=== PATIENT | female | born 1960 | race Caucasian/White ===

== ENCOUNTER 2018-06-21 22:25 | Emergency (ER) | payer OTHER, MEDICAID, SELFPAY ==
[2018-06-21 22:29] VITALS: BP 113/76; PULSE 81; RESP 16; TEMP 36.6; O2SAT 99
--- NOTE | 2018-06-21 23:46 | ED_ITS ---
HPI - Abdominal Pain General Chief Complaint: Abdominal Pain Stated Complaint: ABDOMINAL SWELLING S/P FALL Time Seen by Provider: 06/21/18 23:18 Source: patient Mode of arrival: ambulatory Limitations: no limitations History of Present Illness HPI narrative: 57-year-old female here for evaluation of a bruise on her right abdomen. She states that this morning she was climbing some stairs where she tripped over her shoe lace hitting the right side of her abdomen on a stair step. No other injuries were reported from the event. She states that since then she has had a bruise that has developed in her right lower abdomen. She denies any abdominal pain other than pain when you touch this area. She is on aspirin but no other anticoagulation. She did call her primary care doctor's office and spoke to the nurse there who told her that as long as she was not vomiting she did not need to come to the emergency department. She stated that she did come because her children thought that she needed to be evaluated because of the size of the bruise. Related Data Home Medications Medication Instructions Recorded Confirmed ASPIRIN (Aspirin Low Dose) 81 mg PO #0 10/29/07 Citalopram Hydrobromide 0 PO * UK DOSE/FREQUENCY #0 10/29/07 (Citalopram HBr) Nortriptyline Hydrochloride 0 PO * UK DOSE/FREQUENCY #0 10/29/07 (Pamelor) Simvastatin (Zocor) 0 PO * UK DOSE/FREQUENCY #0 10/29/07 Sumatriptan Succinate (Imitrex) 0 PO * UK DOSE/FREQUENCY #0 10/29/07 [NATATOL] #0 10/29/07 Previous Rx's Medication Instructions Recorded oseltamivir 75 mg PO QDAY #7 cap 12/24/17 Allergies Allergy/AdvReac Type Severity Reaction Status Date / Time Opioids - Morphine Analogues Allergy Verified 06/21/18 22:32 Review of Systems ENT Ears, Nose, Mouth, and Throat: Denies vertigo and Denies dizziness Cardiovascular Denies chest pain, Denies syncope and Denies dyspnea Respiratory Denies dyspnea Gastrointestinal Gastrointestinal: Reports abdominal pain ( Over the bruise in her abdomen) Genitourinary Denies dysuria Musculoskeletal Denies abnormal gait, Denies myalgias and Denies arthralgias Integumentary/Breasts Denies skin ulcer, Denies sores and Reports unusual bruising ( right lower abdomen) Neurologic Denies abnormal gait, Denies confusion, Denies vertigo, Denies dizziness and Denies syncope Psychiatric Denies confusion Hematologic/Lymphatic Denies easy bleeding and Denies easy bruising Allergic/Immunologic Denies urticaria Exam Initial Vital Signs Initial Vital Signs: Vital Signs Temperature 97.9 F 06/21/18 22:29 Pulse Rate 81 06/21/18 22:29 Respiratory Rate 16 06/21/18 22:29 Blood Pressure 113/76 06/21/18 22:29 Pulse Oximetry 99 06/21/18 22:29 Const General: cooperative, healthy appearing, comfortable and well developed Orientation: alert, awake and oriented x3 HENMT Head: normal to inspection and normocephalic Resp Effort & Inspection: normal respiratory effort GI Inspection: abdominal wall ecchymosis ( a 15 cm round area right lower quadrant) , no edema and non-distended Palpation: soft, No guarding and tender ( superficial over area of the ecchymosis) Back/Spine/Pelvis Back: No CVA tenderness Skin Other: 15 cm round area of ecchymosis over the right lower abdomen well demarcated. No breaks in the skin. No bleeding. Neuro General: alert, awake and oriented x3 Cognition: normal cognition Speech: speech normal Gait: normal gait Motor: muscle tone normal throughout Sensory Exam: no sensory deficits noted Extrem General: normal to inspection and capillary refill normal Psych Appearance: grossly normal and well kempt Procedures FAST Exam FAST Exam 1: Fluid in Morison's pouch: No Fluid in Splenorenal Junction: No Fluid around bladder, Transverse view: No Fluid around bladder, Sagittal view: No Fluid in Pericardial Sac: No Gross Wall Motion Abnormality: No Study normal for this patient: Yes Images saved for further review: No Course Vital Signs - 8 hr 06/21/18 22:29 06/21/18 23:55 Temperature 97.9 F Pulse Rate 81 69 Respiratory Rate 16 14 Blood Pressure 113/76 136/72 H Pulse Oximetry 99 99 MDM - Abdominal Pain MDM Narrative Medical decision making narrative: Patient with a right lower quadrant abdominal wall ecchymosis. Fast exam was negative. She had a benign abdominal exam. Will hold on any CT scan for now. No breaks in the skin. No indication for antibiotics. patient was given return precautions. She expressed understanding and agreement with plan Discharge Plan Departure Patient Disposition: Home, Self-Care Clinical Impression: Abdominal wall hematoma Discharge Date/Time: 06/21/18 23:55 Interventions: ED Discharge Assessment Last Done: 06/21/18 23:55 Instructions: DI for Hematoma (Bruise) Activity Restrictions/Additional Instructions: call your primary care doctor for a follow-up. Your only restricted in any activity by discomfort you may have. Return to the emergency department for any new or worsening symptoms Prescriptions: No Action ASPIRIN (Aspirin Low Dose) 81 mg PO Qty: 0 RF: 0 Citalopram Hydrobromide (Citalopram HBr) PO * UK DOSE/FREQUENCY Qty: 0 RF: 0 Simvastatin (Zocor) PO * UK DOSE/FREQUENCY Qty: 0 RF: 0 Sumatriptan Succinate (Imitrex) PO * UK DOSE/FREQUENCY Qty: 0 RF: 0 Nortriptyline Hydrochloride (Pamelor) PO * UK DOSE/FREQUENCY Qty: 0 RF: 0 [NATATOL] Qty: 0 RF: 0 oseltamivir 75 MG capsule 75 mg PO QDAY Qty: 7 RF: 0
[2018-06-21 23:55] VITALS: BP 136/72; PULSE 69; RESP 14; O2SAT 99
== END 2018-06-21 23:55 | disposition home or self-care (01) ==
PROVIDERS: Emergency Provider Emergency Medicine
DX: S30.1XXA Contusion of abdominal wall, initial encounter (principal); W10.8XXA Fall (on) (from) other stairs and steps, initial encounter; Y99.0 Civilian activity done for income or pay
CPT/HCPCS: 99282

== ENCOUNTER 2018-06-30 18:39 | Emergency (ER) | payer OTHER, MEDICAID, SELFPAY ==
[2018-06-30 18:44] VITALS: BP 110/70; PULSE 89; RESP 20; TEMP 36.8; O2SAT 97
--- NOTE | 2018-06-30 20:11 | DI.RAD.S_ITS ---
PROCEDURE: XR LUMBAR SPINE 2-3V INDICATIONS: pain midline hx surgery TECHNIQUE: 3 views of the lumbar spine were acquired. COMPARISON: None. FINDINGS: Bones: 5 [id number] vertebrae are present, assuming the vertebra with rudimentary ribs is the L1 and sacralization of L5. There is grade 3 anterolisthesis of L5 on S1. There is a surgical screw traversing L5-S1. No vertebral body compression fractures. No suspicious bony lesions. Soft tissues: Overlying bowel gas pattern is normal. No suspicious soft tissue calcifications. IMPRESSION: 1. No fractures. 2. Transitional anatomy as described. 3. Grade 3 anterolisthesis of L5 on S1. Dictated by: Francoise Rodas M.D. on 06/30/2018 at 20:57 Approved by: Francoise Rodas M.D. on 06/30/2018 at 21:05
--- NOTE | 2018-06-30 20:33 | ED.BACK ---
HPI - Back Pain/Injury General Chief Complaint: Back Pain/Injury Stated Complaint: LOWER BACK PAIN, SAYS SHE HAS A PLATE Time Seen by Provider: 06/30/18 20:11 Mode of arrival: ambulatory Limitations: no limitations History of Present Illness HPI Narrative: Patient is a 57-year-old female who presents with back pain for 3 days. She has a history of lumbar fusion in the . She has not had any issues with it since. 3 days ago she fell walking up stairs for words. She has not had issues until today. Now she has pain right in the center of her back the site of her surgery. She has no numbness or tingling loss of bowel or urine. No fevers. MD Complaint: back pain, back injury and fall Related Data Home Medications Medication Instructions Recorded Confirmed ASPIRIN (Aspirin Low Dose) 81 mg PO #0 10/29/07 Citalopram Hydrobromide 0 PO * UK DOSE/FREQUENCY #0 10/29/07 (Citalopram HBr) Nortriptyline Hydrochloride 0 PO * UK DOSE/FREQUENCY #0 10/29/07 (Pamelor) Simvastatin (Zocor) 0 PO * UK DOSE/FREQUENCY #0 10/29/07 Sumatriptan Succinate (Imitrex) 0 PO * UK DOSE/FREQUENCY #0 10/29/07 [NATATOL] #0 10/29/07 Previous Rx's Medication Instructions Recorded oseltamivir 75 mg PO QDAY #7 cap 12/24/17 Allergies Allergy/AdvReac Type Severity Reaction Status Date / Time Opioids - Morphine Analogues Allergy Verified 06/21/18 22:32 Review of Systems Review of Systems GENERAL: Denies chills, fatigue, malaise, fever, sweats, travel HEENT: Denies sinus pain, ear pain, sore throat, difficulty swallowing, neck pain RESPIRATORY: Denies dyspnea, cough, wheezing, hemoptysis, sputum. CARDIOVASCULAR: Denies chest pain, palpitations, orthopnea, edema GASTROINTESTINAL: Denies nausea, vomiting, abdominal pain, diarrhea, constipation, melena. : Denies dysuria, frequency, incontinence, hematuria, urinary retention, flank pain. MUSCULOSKELETAL: See HPI SKIN: No rash, no erythema, no pruritus NEUROLOGIC: Denies weakness, dizziness, headache, numbness, change in speech, confusion PSYCHIATRIC: No concerning psychosocial issues. 12 point review of systems is negative except for those stated above and HPI [facility] Medical History Spondylisthesis (Acute) Surgical History History of lumbar surgery (Acute) Social History Smoking Status: Current every day smoker Exam Initial Vital Signs Initial Vital Signs: Vital Signs Temperature 98.2 F 06/30/18 18:44 Pulse Rate 89 06/30/18 18:44 Respiratory Rate 20 06/30/18 18:44 Blood Pressure 110/70 06/30/18 18:44 Pulse Oximetry 97 06/30/18 18:44 GENERAL: Well-appearing, well-nourished and in no acute distress. HEENT: Head atraumatic,EOMI, pupils reactive CARDIOVASCULAR: Regular rate and rhythm without murmurs, rubs or gallops. RESPIRATORY: Breath sounds equal bilaterally, no wheezes rales or rhonchi. ABDOMEN: Soft, nontender. Normoactive bowel sounds all 4 quadrants. No guarding or rebound. BACK: Surgical scar noted midline pain. No sign of trauma. Sensation is saddle area intact EXTREMITIES: Normal range of motion, no clubbing or edema. Neurovascularly intact NEUROLOGICAL: Alert and oriented x4.Normal gait and speech. Cranial nerves II through XII grossly intact. Ambulatory without difficulty SKIN: Warm, dry, no laceration, no petechiae, no rashes or lesions. Course Orders Ordered: ED Orders 06/30/18 20:11 XR lumbar spine 2-3V Stat Discontinued Medications Ketorolac Tromethamine (Toradol) 30 mg IM NOW ONE Stop: 06/30/18 20:12 Last Admin: 06/30/18 20:40 Dose: 30 mg Vital Signs - 8 hr 06/30/18 18:44 06/30/18 20:43 Temperature 98.2 F Pulse Rate 89 83 Respiratory Rate 20 16 Blood Pressure 110/70 Blood Pressure [Left Arm] 119/80 Pulse Oximetry 97 96 MDM - Back Pain/Injury Imaging Data x ray l spine: Radiologist's impression: PROCEDURE: XR LUMBAR SPINE 2-3V INDICATIONS: pain midline hx surgery TECHNIQUE: 3 views of the lumbar spine were acquired. COMPARISON: None. FINDINGS: Bones: 5 [id number] vertebrae are present, assuming the vertebra with rudimentary ribs is the L1 and sacralization of L5. There is grade 3 anterolisthesis of L5 on S1. There is a surgical screw traversing L5-S1. No vertebral body compression fractures. No suspicious bony lesions. Soft tissues: Overlying bowel gas pattern is normal. No suspicious soft tissue calcifications. IMPRESSION: 1. No fractures. 2. Transitional anatomy as described. 3. Grade 3 anterolisthesis of L5 on S1. Dictated by: Francoise Rodas M.D. on 06/30/2018 at 20:57 MDM Narrative Medical decision making narrative: She is feeling better after Toradol. She previously had x-ray at [facility] about 1-2 years ago. I recommend her primary care physician compare the x-rays. At this time pain is improved in no acute findings on today's x-ray. Discharge Plan Departure Patient Disposition: Home, Self-Care Clinical Impression: Strain of lumbar region Discharge Date/Time: 06/30/18 21:31 Interventions: ED Discharge Assessment Last Done: 06/30/18 21:31 Instructions: Low Back Pain Activity Restrictions/Additional Instructions: *You have been diagnosed with back pain *What to do: Recommend her primary doctor compared to x-rays from today and a urine half ago. At this time everything appears stable. *Continue to take medications as directed May take Tylenol 650 mg when you get home *Follow up with your primary care provider in 2-3 days *Return to ER if you should have increasing pain, numbness, tingling, loss of urine or any new, worsening or concerning symptoms Prescriptions: No Action ASPIRIN (Aspirin Low Dose) 81 mg PO Qty: 0 RF: 0 Citalopram Hydrobromide (Citalopram HBr) PO * UK DOSE/FREQUENCY Qty: 0 RF: 0 Simvastatin (Zocor) PO * UK DOSE/FREQUENCY Qty: 0 RF: 0 Sumatriptan Succinate (Imitrex) PO * UK DOSE/FREQUENCY Qty: 0 RF: 0 Nortriptyline Hydrochloride (Pamelor) PO * UK DOSE/FREQUENCY Qty: 0 RF: 0 [NATATOL] Qty: 0 RF: 0 oseltamivir 75 MG capsule 75 mg PO QDAY Qty: 7 RF: 0
[2018-06-30] MEDS: KETOROLAC 60 MG/2 ML VIAL 30 MG IM (20:40)
[2018-06-30 20:43] VITALS: BP 119/80; PULSE 83; RESP 16; O2SAT 96
== END 2018-06-30 21:31 | disposition home or self-care (01) ==
PROVIDERS: Emergency Provider Emergency Medicine
DX: S39.012A Strain of muscle, fascia and tendon of lower back, initial encounter (principal); W10.9XXA Fall (on) (from) unspecified stairs and steps, initial encounter; Y99.0 Civilian activity done for income or pay
CPT/HCPCS: 72100; 99282; 99283; J1885

== ENCOUNTER 2019-12-19 07:49 | Emergency (ER) | payer OTHER, SELFPAY ==
[2019-12-19 07:57] VITALS: BP 142/81; PULSE 70; RESP 13; TEMP 36.6; O2SAT 98
--- NOTE | 2019-12-19 08:18 | PC.NURSE ---
Carbon monoxide 0
--- NOTE | 2019-12-19 08:22 | ED_ITS ---
HPI - General Adult General Chief complaint: Environmental Exposure Stated complaint: possible carbon monoxide poisoning Time Seen by Provider: 12/19/19 07:52 Source: patient Mode of arrival: Ambulatory Limitations: no limitations History of Present Illness HPI narrative: Patient is a 59-year-old female who presents with headache and nausea, she states has been ongoing at work for the past few months. Yesterday they found out that there was a carbon monoxide leak. She says when she goes home on the weekends her symptoms improved however during the day while at work her symptoms worsen. She feels nauseous and has a headache no vomiting no numbness tingling or blurry vision. She overall just feels like something is wrong. Related Data Home Medications Medication Instructions Recorded Confirmed ASPIRIN (Aspirin Low Dose) 81 mg PO #0 10/29/07 Citalopram Hydrobromide 0 PO * UK DOSE/FREQUENCY #0 10/29/07 (Citalopram HBr) Nortriptyline Hydrochloride 0 PO * UK DOSE/FREQUENCY #0 10/29/07 (Pamelor) Simvastatin (Zocor) 0 PO * UK DOSE/FREQUENCY #0 10/29/07 Sumatriptan Succinate (Imitrex) 0 PO * UK DOSE/FREQUENCY #0 10/29/07 [NATATOL] #0 10/29/07 Previous Rx's Medication Instructions Recorded oseltamivir 75 mg PO QDAY #7 cap 12/24/17 Allergies Allergy/AdvReac Type Severity Reaction Status Date / Time Opioids - Morphine Analogues Allergy Verified 06/21/18 22:32 Review of Systems Review of Systems ROS Unobtainable: All systems reviewed & are unremarkable except as noted in HPI and below Constitutional Constitutional: Denies chills, Denies fever(s), Reports headache(s), Denies lethargy and Denies weakness Eyes Eyes: Denies blurry vision and Denies change in vision ENT Ears, Nose, Mouth, and Throat: Denies change in voice, Reports headache(s), Denies neck pain and Denies sore throat Cardiovascular Cardiovascular: Denies chest pain, Denies irregular heart rhythm, Denies lightheadedness, Denies palpitations, Denies dyspnea, Denies dyspnea on exertion and Denies orthopnea Respiratory Respiratory: Denies cough, Denies dyspnea, Denies dyspnea on exertion and Denies wheezing Gastrointestinal Gastrointestinal: Denies abdominal pain, Reports nausea and Denies vomiting Musculoskeletal Musculoskeletal: Denies neck pain Integumentary/Breasts Skin/Breast: Denies pruritus, Denies erythema, Denies rash and Denies wounds Neurologic Neurologic: Denies confusion, Reports headache(s) and Denies weakness Psychiatric Psychiatric: Denies anxiety, Denies confusion, Denies depression, Denies homicidal ideation and Denies suicidal ideation Endocrine Endocrine: Denies palpitations Allergic/Immunologic Allergic/Immunologic: Denies wheezing Patient History Medical History (Updated 12/19/19 @ 08:44 by Layla Mesa DO) Spondylisthesis (Acute) Surgical History (Updated 07/01/18 @ 00:18 by Layla Mesa DO) History of lumbar surgery (Acute) Social History Smoking Status: Current every day smoker Smoking Status: Current every day smoker alcohol intake frequency: 0-2 drinks per day Exam Initial Vital Signs Initial Vital Signs: Vital Signs Temperature 97.9 F 12/19/19 07:57 Pulse Rate 70 12/19/19 07:57 Respiratory Rate 13 12/19/19 07:57 Blood Pressure 142/81 H 12/19/19 07:57 Pulse Oximetry 98 12/19/19 07:57 GENERAL: Well-appearing, well-nourished and in no acute distress. HEENT: Head atraumatic,EOMI, pupils reactive, face symmetric, moist mucous membranes CARDIOVASCULAR: Regular rate and rhythm without murmurs, rubs or gallops. RESPIRATORY: Breath sounds equal bilaterally, no wheezes rales or rhonchi. ABDOMEN: Soft, nontender. Normoactive bowel sounds all 4 quadrants. No gua rding or rebound. EXTREMITIES: Normal range of motion, no clubbing or edema. Neurovascularly intact NEUROLOGICAL: Alert and oriented x4.Normal gait and speech. Cranial nerves II through XII grossly intact. SKIN: Warm, dry, no laceration, no petechiae, no rashes or lesions. Course Vital Signs Vital signs: Vital Signs - 8 hr 12/19/19 07:57 Temperature 97.9 F Pulse Rate 70 Respiratory Rate 13 Blood Pressure 142/81 H Pulse Oximetry 98 Medical Decision Making MDM Narrative Medical decision making narrative: Carbon monoxide level here in the emergency department is 0. Discharge Plan Departure Patient Disposition: Home Clinical Impression: Environmental exposure Discharge Date/Time: 12/19/19 09:20 Instructions: Carbon Monoxide Poisoning, Preventing Carbon Monoxide Poisoning Activity Restrictions/Additional Instructions: *You have been diagnosed with carbon monoxide exposure *What to do: Symptoms are likely related to carbon monoxide exposure. You may require further testing *Continue to take medications as directed *Follow up with your primary care provider in 2-3 days *Return to ER if you should have increasing head or any new, worsening or concerning symptoms Prescriptions: No Action ASPIRIN (Aspirin Low Dose) 81 mg PO Qty: 0 RF: 0 Citalopram Hydrobromide (Citalopram HBr) 0 PO * UK DOSE/FREQUENCY Qty: 0 RF: 0 Simvastatin (Zocor) 0 PO * UK DOSE/FREQUENCY Qty: 0 RF: 0 Sumatriptan Succinate (Imitrex) 0 PO * UK DOSE/FREQUENCY Qty: 0 RF: 0 Nortriptyline Hydrochloride (Pamelor) 0 PO * UK DOSE/FREQUENCY Qty: 0 RF: 0 [NATATOL] Qty: 0 RF: 0 oseltamivir 75 MG capsule 75 mg PO QDAY Qty: 7 RF: 0 Referrals: Aydee Nicholas ARNP [Non-Staff] -
== END 2019-12-19 09:20 | disposition home or self-care (01) ==
PROVIDERS: Emergency Provider Emergency Medicine
DX: Z57.5 Occupational exposure to toxic agents in other industries (principal); T75.89XA Other specified effects of external causes, initial encounter; R51 Headache; Y99.0 Civilian activity done for income or pay
CPT/HCPCS: 99281; 99283

== ENCOUNTER → 2022-04-02 15:17 | Outpatient (CLI) | payer OTHER, MEDICAID, SELFPAY ==
[2022-04-02 16:30] LABS: Influenza A - CEPHEID Flu A NEGATIVE (NEGATIVE); Influenza B - CEPHEID Flu B NEGATIVE (NEGATIVE)
[2022-04-02 16:34] LABS: COVID-19 CEPHEID PCR (VTM/NP) Negative (Negative)
== END ==
PROVIDERS: Visit Provider Physician Assistant
DX: R05.9 Cough, unspecified (principal); Z20.822 Contact with and (suspected) exposure to COVID-19
CPT/HCPCS: 0240U

== ENCOUNTER 2022-04-04 18:41 | Emergency (ER) | payer OTHER, MEDICAID, SELFPAY ==
[2022-04-04 18:53] VITALS: BP 163/89; PULSE 86; RESP 18; TEMP 37; O2SAT 96; BMI 19.9
--- NOTE | 2022-04-04 18:56 | DI.RAD.S_ITS ---
PROCEDURE: XR CHEST 1V INDICATIONS: cough TECHNIQUE: One view of the chest was acquired. COMPARISON: None. FINDINGS: Surgical changes and devices: None. Lungs and pleura: Lungs are clear. No pleural effusions or pneumothorax. Mediastinum: Mediastinal contours appear normal. Heart size is normal. Bones and chest wall: No suspicious bony lesions. Overlying soft tissues appear unremarkable. IMPRESSION: No radiographic acute thoracic abnormality. Dictated by: Tremayne Espinoza M.D. on 04/04/2022 at 19:15 Approved by: Tremayne Espinoza M.D. on 04/04/2022 at 19:16
--- NOTE | 2022-04-04 19:03 | ED_ITS ---
HPI - General Adult General Chief complaint: Upper Respiratory Symptoms Stated complaint: seen at [facility] 03/30 coughing is extreme Time Seen by Provider: 04/04/22 18:48 Source: patient Mode of arrival: Ambulatory History of Present Illness HPI narrative: 61-year-old female without underlying lung pathology who earlier this week started have a cough. She has been to the walk-in clinic 2 different episodes. Has had a negative COVID and a negative flu. Has been on oral medications and also nasal steroids. She has also been on [id number] medications. She has also had left ear pain. A sore throat. Has not been a productive cough. Is now having rib discomfort and back discomfort with coughing. Related Data Home Medications Medication Instructions Recorded Confirmed ASPIRIN (Aspirin Low Dose) 81 mg PO #0 10/29/07 04/02/22 Citalopram Hydrobromide 0 PO * [place] DOSE/FREQUENCY #0 10/29/07 04/02/22 (Citalopram HBr) Nortriptyline Hydrochloride 0 PO * [place] DOSE/FREQUENCY #0 10/29/07 04/02/22 (Pamelor) Simvastatin (Zocor) 0 PO * [place] DOSE/FREQUENCY #0 10/29/07 04/02/22 Sumatriptan Succinate (Imitrex) 0 PO * [place] DOSE/FREQUENCY #0 10/29/07 04/02/22 [NATATOL] #0 10/29/07 04/02/22 amitriptyline PO 03/30/22 04/02/22 sumatriptan succinate PO 03/30/22 04/02/22 Previous Rx's Medication Instructions Recorded oseltamivir 75 mg capsule 75 mg PO QDAY #7 cap 12/24/17 benzonatate 100 mg capsule 100 mg PO TID PRN #20 cap 04/04/22 Allergies Allergy/AdvReac Type Severity Reaction Status Date / Time Sulfa (Sulfonamide Allergy Mild Hives Verified 04/04/22 18:53 Antibiotics) Opioids - Morphine Analogues Allergy Vomiting Verified 04/04/22 18:53 Review of Systems Constitutional Constitutional: Denies fever(s) ENT Ears, Nose, Mouth, and Throat: Reports system reviewed and no additional complaints, except as documented and Reports as per HPI Cardiovascular Cardiovascular: Reports system reviewed and no additional complaints, except as documented Respiratory Respiratory: Reports system reviewed and no additional complaints, except as documented Musculoskeletal Musculoskeletal: Reports system reviewed and no additional complaints, except as documented Integumentary/Breasts Skin/Breast: Reports system reviewed and no additional complaints, except as documented Hematologic/Lymphatic On Anticoagulants: No Patient History Medical History Spondylisthesis Surgical History History of lumbar surgery Social History Smoking Status: Current every day smoker Smoking Status: Current every day smoker tobacco type: cigarettes alcohol intake frequency: 0-2 drinks per day Alcohol type: beer and wine Substance Use Type: does not use Exam Initial Vital Signs Initial Vital Signs: Vital Signs Temperature 98.6 F 04/04/22 18:53 Pulse Rate 86 04/04/22 18:53 Respiratory Rate 18 04/04/22 18:53 Blood Pressure 163/89 H 04/04/22 18:53 Pulse Oximetry 96 04/04/22 18:53 HENMT Throat: posterior oropharynx normal Other HENMT:: Bilateral tympanic membranes bulging without erythema. Resp Effort & Inspection: normal respiratory effort Auscultation: clear to auscultation bilaterally Cardio Rate: regular rate Rhythm: regular rhythm Skin General: no rashes or lesions noted Neuro General: patient alert, patient awake and moves all extremities Extrem General: normal to inspection and capillary refill normal Psych Appearance: grossly normal and well kempt Course Orders Ordered: ED Orders 04/04/22 18:56 XR chest 1V Stat Vital Signs Vital signs: Vital Signs - 8 hr 04/04/22 18:53 04/04/22 20:23 Temperature 98.6 F Pulse Rate 86 94 H Respiratory Rate 18 18 Blood Pressure 163/89 H 137/83 Pulse Oximetry 96 97 Medical Decision Making Imaging Data Chest x-ray: Radiologist's Impression: [address] [address] XRay Report Signed Patient: Shayy Nye MR#: [id number] : 1960 Acct:[id number] Age/Sex: 61 / F Date of Service: 04/04/22 Loc: ED Accession Number: [id number] ?? Procedure: XR chest 1V Ordering Provider: Víctor Cuellar D.O. PROCEDURE:? XR CHEST 1V ? INDICATIONS:? cough ? TECHNIQUE:? One view of the chest was acquired.? ? COMPARISON:? None. ? FINDINGS:? ? Surgical changes and devices:? None.? ? Lungs and pleura:? Lungs are clear.? No pleural effusions or pneumothorax.? ? Mediastinum:? Mediastinal contours appear normal.? Heart size is normal.? ? Bones and chest wall:? No suspicious bony lesions.? Overlying soft tissues appear unremarkable.? ? IMPRESSION:? No radiographic acute thoracic abnormality.? ? ? Dictated by: Tremayne Espinoza M.D. on 04/04/2022 at 19:15 ? ? Approved by: Tremayne Espinoza M.D. on 04/04/2022 at 19:16?? [facility] Narrative Medical decision making narrative: Afebrile. Chest x-ray is unremarkable. Labs unremarkable. No rashes. Does have bulging bilateral tympanic membranes without erythema. I suspect this is a viral upper respiratory infection. She has already been tested for COVID and the flu both of which were negative. No indication for antibiotics. We did discuss the use of decongestants. She also has [id number] medications she has been using. Was sent home with prescription for Tessalon Perles. She was given return precautions. She expressed understanding and agreement. Discharge Plan Departure Patient Disposition: Home Clinical Impression: Upper respiratory infection, Cough Instructions: Cough (Alternative Therapy), Cough Activity Restrictions/Additional Instructions: I do recommend that you continue to take the medications as directed. Contact your primary doctor for follow-up. Return to the emergency department for any new or worsening symptoms. Prescriptions: New benzonatate 100 mg capsule 100 mg PO TID PRN (Reason: cough) Qty: 20 0RF No Action amitriptyline PO 0RF sumatriptan succinate PO 0RF ASPIRIN (Aspirin Low Dose) 81 mg PO Qty: 0 0RF Citalopram Hydrobromide (Citalopram HBr) 0 PO * [place] DOSE/FREQUENCY Qty: 0 0RF Simvastatin (Zocor) 0 PO * [place] DOSE/FREQUENCY Qty: 0 0RF Sumatriptan Succinate (Imitrex) 0 PO * [place] DOSE/FREQUENCY Qty: 0 0RF Nortriptyline Hydrochloride (Pamelor) 0 PO * [place] DOSE/FREQUENCY Qty: 0 0RF [NATATOL] Qty: 0 0RF oseltamivir 75 MG capsule 75 mg PO QDAY Qty: 7 0RF
[2022-04-04 20:23] VITALS: BP 137/83; PULSE 94; RESP 18; O2SAT 97
== END 2022-04-04 20:26 | disposition home or self-care (01) ==
PROVIDERS: Emergency Provider Emergency Medicine
DX: J06.9 Acute upper respiratory infection, unspecified (principal); R05.9 Cough, unspecified; F17.210 Nicotine dependence, cigarettes, uncomplicated
CPT/HCPCS: 71045; 99283

== ENCOUNTER → 2022-09-08 16:57 | Outpatient (CLI) | payer OTHER, MEDICAID, SELFPAY ==
[2022-09-08 17:48] LABS: Influenza A - CEPHEID Flu A NEGATIVE (NEGATIVE); Influenza B - CEPHEID Flu B NEGATIVE (NEGATIVE); Respiratory Syncytial Virus Negative (Negative)
[2022-09-08 18:00] LABS: COVID-19 CEPHEID PCR (VTM/NP) Negative (Negative)
== END ==
PROVIDERS: Visit Provider Registered Nurse
DX: R53.83 Other fatigue (principal)
CPT/HCPCS: 0241U

== ENCOUNTER → 2022-09-08 17:07 | Outpatient (CLI) | payer OTHER, MEDICAID, SELFPAY ==
[2022-09-08 17:37] LABS: Add Manual Diff / Slide Review NO; Basophils Absolute Auto 100 /uL (0-100); Basophils Percent Auto 0.9 % (0-2); Eosinophils Absolute Auto 100 /uL (0-450); Eosinophils Percent Auto 1.6 % (2-4); Hematocrit 41.6 % (36-46); Hemoglobin 14.1 g/dL (12.0-16.0); Lymphocytes Absolute Auto 2500 /uL (1100-4500); Lymphocytes Percent Auto 36.9 % (25-40); Mean Corpuscular HGB Conc 33.9 % (30-36); Mean Corpuscular Volume 91.4 fL (80-100); Monocytes Absolute Auto 500 /uL (0-900); Monocytes Percent Auto 7.8 % (3-14); Neutrophils Absolute Auto 3500 /uL (1500-7000); Neutrophils Percent Auto 52.8 % (50-75); Platelet Count 211 X10^3/uL (150-400); Red Blood Cell Count 4.55 X10^6/uL (4.0-5.2); White Blood Cell Count 6.7 X10^3/uL (4.5-11.0)
[2022-09-08 17:48] LABS: Alanine Aminotransferase 26 IU/L (<35); Albumin 4.8 g/dL (3.5-5.0); Albumin Globulin Ratio 1.3 (1.0-2.8); Alkaline Phosphatase 67 U/L (38-126); Aspartate Aminotransferase 35 IU/L (14-36); BUN Creatinine Ratio 15.8 (6-22); Bilirubin Total 0.4 mg/dL (0.2-1.3); Blood Urea Nitrogen 9 mg/dL (7-17); Calcium 9.9 mg/dL (8.4-10.2); Carbon Dioxide 25 mmol/L (22-32); Chloride 102 mmol/L (98-107); Estimated Glomerular Filt Rate > 60 mL/min (>60); Globulin 3.7 g/dL (1.7-4.1); Glucose 99 mg/dL (80-110); HEMOLYSIS 27 (0-50); Potassium 4.2 mmol/L (3.4-5.1); Sodium 138 mmol/L (137-145); Total Protein 8.5 g/dL (6.3-8.2)
[2022-09-08 18:20] LABS: TSH w/ Reflex to FT4 1.83 uIU/mL (0.47-4.68)
[2022-09-08 18:37] LABS: Vitamin B12 197 pg/mL (239-931)
== END ==
PROVIDERS: Referring Provider Registered Nurse; Visit Provider Registered Nurse
DX: R53.83 Other fatigue (principal)
CPT/HCPCS: 0241U; 36415; 80053; 82607; 84443; 85025

== ENCOUNTER → 2022-11-29 13:26 | Outpatient (CLI) | payer OTHER, MEDICAID, SELFPAY ==
[2022-11-29 14:17] LABS: Influenza A - CEPHEID Flu A NEGATIVE (NEGATIVE); Influenza B - CEPHEID Flu B NEGATIVE (NEGATIVE); Respiratory Syncytial Virus Negative (Negative)
[2022-11-29 14:19] LABS: COVID-19 CEPHEID 4-PLEX PCR Negative (Negative)
== END ==
PROVIDERS: Visit Provider Nurse Practitioner Family
DX: R05.1 Acute cough (principal)
CPT/HCPCS: 0241U